=== PATIENT | male | born 1980 | race African-American/Black ===

== ENCOUNTER 2016-09-14 22:06 | Emergency (ER) | payer OTHER ==
[2016-09-14 22:26] VITALS: BP 106/58; PULSE 73; TEMP 98.4; BMI 24.1
--- NOTE | 2016-09-14 23:46 | PDOC ---
History of Present Illness <Anup Starkey - Last Filed: 09/15/16 02:02> - General History Source: Patient Exam Limitations: No Limitations - History of Present Illness Initial Comments: 09/15/16 01:38 The patient is a 36 year old male, with no significant past medical history, who presents to the emergency department with URI symptoms (nasal congestion and a nonproductive cough) for the past 3 days. The patient additionally endorses nausea and several episodes of nonbilious nonbloody vomiting. He states that he has had a decreased appetite over the past 3 days secondary to nausea/vomiting. The patient reports that he has been taking Robitussin and [place] cough drops for his symptoms, with no relief of symptoms. Currently in the ED, the patient reports that he feels weak. The patient denies fever, chills , diarrhea or dysuria. Allergies: None reported. Past Surgical History: None reported. Social History: Current someday smoker. Reports occasional marijuana use. Denies alcohol use. <Katiuska Hill - Last Filed: 09/15/16 03:46> - General Chief Complaint: Nausea/Vomiting Stated Complaint: VOMITING/NAUSEA Time Seen by Provider: 09/14/16 23:46 Past History - Psycho/Social/Smoking Cessation Hx Suicidal Ideation: No Smoking History: Current some day smoker Information on smoking cessation initiated: No Drug/Substance Use Hx: Yes (marijuana) Substance Use Type: Marijuana <LalitoAnup - Last Filed: 09/15/16 02:02> <Katiuska Hill - Last Filed: 09/15/16 03:46> - Past Medical History Allergies/Adverse Reactions: Allergies Allergy/AdvReac Type Severity Reaction Status Date / Time No Known Allergies Allergy Verified 09/14/16 22:26 Home Medications: Ambulatory Orders Ondansetron [Zofran *Odt*] 8 mg SL TID #30 od.tablet 09/15/16 Review of Systems - Review of Systems Able to Perform ROS?: Yes Comments:: 09/15/16 00:29 GENERAL/CONSTITUTIONAL: +Weakness, decreased appetite. No fever or chills. HEAD, EYES, EARS, NOSE AND THROAT: +Nasal congestion. No change in vision. No ear pain or discharge. No sore throat. CARDIOVASCULAR: No chest pain or shortness of breath. RESPIRATORY: +Cough. No wheezing or hemoptysis. GASTROINTESTINAL: +Nausea, vomiting. No diarrhea or constipation. GENITOURINARY: No dysuria, frequency, or change in urination. MUSCULOSKELETAL: No joint or muscle swelling or pain. No neck or back pain. SKIN: No rash. NEUROLOGIC: No headache, vertigo, loss of consciousness, or change in strength/ sensation. ENDOCRINE: No increased thirst. No abnormal weight change. HEMATOLOGIC/LYMPHATIC: No anemia, easy bleeding, or history of blood clots. ALLERGIC/IMMUNOLOGIC: No hives or skin allergy. <Katiuska Hill - Last Filed: 09/15/16 03:46> *Physical Exam - Vital Signs Last Vital Signs Temp Pulse Resp BP Pulse Ox 98.4 F 73 18 106/58 98 09/14/16 22:24 09/14/16 22:24 09/14/16 22:24 09/14/16 22:24 09/14/16 22:24 <Anup Starkey - Last Filed: 09/15/16 02:02> - Vital Signs Last Vital Signs Temp Pulse Resp BP Pulse Ox 98.4 F 73 18 106/58 98 09/14/16 22:24 09/14/16 22:24 09/14/16 22:24 09/14/16 22:24 09/14/16 22:24 - Physical Exam Comments: 09/15/16 00:26 GENERAL: Awake, alert, and fully oriented, in no acute distress. HEAD: No signs of trauma. EYES: PERRLA, EOMI, sclera anicteric, conjunctiva clear. ENT: Auricles normal inspection, hearing grossly normal, nares patent, oropharynx clear without exudates. Moist mucosa. NECK: Normal ROM, supple, no lymphadenopathy, JVD, or masses. LUNGS: Breath sounds equal, clear to auscultation bilaterally. No wheezes, and no crackles. HEART: Regular rate and rhythm, normal S1 and S2, no murmurs, rubs or gallops. ABDOMEN: Soft, nontender, normoactive bowel sounds. No guarding, no rebound. No masses. EXTREMITIES: Normal range of motion, no edema. No clubbing or cyanosis. No cords, erythema, or tenderness. NEUROLOGICAL: Cranial nerves II through XII intact. Normal speech, normal gait. SKIN: Warm, dry, normal turgor, no rashes or lesions noted. <Katiuska Hill - Last Filed: 09/15/16 03:46> ED Treatment Course - LABORATORY CBC & Chemistry Diagram: 09/15/16 00:46 09/15/16 00:46 <Anup Starkey - Last Filed: 09/15/16 02:02> - LABORATORY CBC & Chemistry Diagram: 09/15/16 00:46 09/15/16 00:46 <Katiuska Hill - Last Filed: 09/15/16 03:46> *DC/Admit/Observation/Transfer - Discharge Dispostion Admit: No - Attestations Physician Attestion: 09/14/16 23:46 I, Dr. Anup Starkey, attest that this document has been prepared under my direction and personally reviewed by me in its entirety. I further attest, that it accurately reflects all work, treatment, procedures and medical decision -making performed by me. <Anup Starkey - Last Filed: 09/15/16 02:02> - Attestations Scribe Attestion: 09/14/16 23:50 Documentation prepared by Katiuska Hill, acting as medical leader for Anup Starkey MD/. <Katiuska Hill - Last Filed: 09/15/16 03:46> Diagnosis at time of Disposition: Viral syndrome - Discharge Dispostion Disposition: HOME Condition at time of disposition: Good - Prescriptions Prescriptions: Ondansetron [Zofran *Odt*] 8 mg SL TID #30 od.tablet - Patient Instructions Printed Discharge Instructions: DI for Vomiting -- Adult Additional Instructions: Ivan- Use the Zofran for Nausea or Vomiting. Return to us if any problems. See your doctor later this week. Best- Dr. Anup Starkey - Post Discharge Activity Work/School Note: Back to Work
[2016-09-15] MEDS ORDERED: ONDANSETRON *ODT* 4 MG TABLET SL ONE (00:33)
[2016-09-15] MEDS ORDERED: ONDANSETRON *ODT* 4 MG TABLET ONE (00:44)
[2016-09-15 00:54] LABS: BASOPHIL 0.3 % (0-2.0); EOSINOPHIL 1.9 % (0-4.5); MCH 31.5 pg (25.7-33.7); MCHC 33.4 g/dl (32.0-35.9); MEAN CELL VOLUME 94.2 fl (80-96); MEAN PLT VOLUME 7.9 fl (7.5-11.1); PLATELET COUNT 220 K/MM3 (134-434); RDW 13.1 % (11.9-15.9); WHITE BLOOD COUNT 7.8 K/mm3 (4.0-10.0)
[2016-09-15 01:03] LABS: URINE APPEARANCE CLEAR; URINE BILIRUBIN NEGATIVE (NEGATIVE); URINE COLOR YELLOW; URINE GLUCOSE (UA) NEGATIVE (NEGATIVE); URINE KETONE TRACE (NEGATIVE); URINE LEUK ESTERASE NEGATIVE (NEGATIVE); URINE NITRITE NEGATIVE (NEGATIVE); URINE UROBILINOGEN NEGATIVE E.U./dl (0.2-1.0)
[2016-09-15 01:15] LABS: URINE BLOOD 2+ (NEGATIVE); URINE PROTEIN 1+ (NEGATIVE)
[2016-09-15 01:19] LABS: URINE MUCUS FEW; URINE RBC 24 /hpf (0-3); URINE WBC 1 /hpf (3-5)
[2016-09-15 01:25] LABS: ALBUMIN 3.8 g/dl (3.4-5.0); ALK PHOS 72 U/L (45-117); ANION GAP 9 (8-16); BILIRUBIN,TOTAL 0.5 mg/dL (0.2-1.0); CALCIUM 8.9 mg/dL (8.5-10.1); CO2 27 mmol/L (21-32); COCKROFT - GAULT 95.61; CREATININE 1.1 mg/dL (0.7-1.3); GLUCOSE,RANDOM 98 mg/dL (74-106); SGOT/AST 15 U/L (15-37); SGPT/ALT 28 U/L (12-78); TOT PROT 7.2 g/dl (6.4-8.2)
== END 2016-09-15 02:06 | disposition home or self-care (01) ==
LOC: JER 22:06
DX: B34.9 Viral infection, unspecified (principal); F17.210 Nicotine dependence, cigarettes, uncomplicated
CPT/HCPCS: 36415; 71020-TC; 80053; 81003; 81015; 83690; 85025; 99281-25

== ENCOUNTER 2020-02-18 20:50 | Emergency (ER) | payer OTHER ==
--- OUTSIDE RECORDS SUMMARY | 2020-02-18 21:05 | XMS ---
:1980 Author Organization [facility] Support Name Relationship Address Phone UE Unavailable Unavailable Unavailable NATAN MILLS SISTER [address] [place] [id number] Re-disclosure Warning The records that you are about to access may contain information from federally- assisted alcohol or drug abuse programs. If such information is present, then the following federally mandated warning applies: This information has been disclosed to you from records protected by federal confidentiality rules (42 CFR part 2). The federal rules prohibit you from making any further disclosure of this information unless further disclosure is expressly permitted by the written consent of the person to whom it pertains or as otherwise permitted by 42 CFR part 2. A general authorization for the release of medical or other information is NOT sufficient for this purpose. The Federal rules restrict any use of the information to criminally investigate or prosecute any alcohol or drug abuse patient.The records that you are about to access may contain highly sensitive health information, the redisclosure of which is protected by Article 27-F of the [facility] Public Health law. If you continue you may haveaccess to information: Regarding HIV / AIDS; Provided by facilities licensed or operated by the [facility] Office of Mental Health; or Provided by the [facility] Office for People With Developmental Disabilities. If such information is present, then the following [facility] mandated warning applies: This information has been disclosed to you from confidential records which are protected by state law. State law prohibits you from making any further disclosure of this information without the specific written consent of the person to whom it pertains, or as otherwise permitted by law. Any unauthorized further disclosure in violation of state law may result in a fine or residential sentence or both. A general authorization for the release of medical or other information is NOT sufficient authorization for further disclosure. Insurance Providers Payer name Policy type / Policy ID Covered Covered democrat's Policy Plan Coverage type democrat ID relationship to Yañez Information yañez [place], [id number] [place] [id number] [employer] [place]
[2020-02-18 21:06] VITALS: BP 123/82; PULSE 68; TEMP 98.2; BMI 28.8
[2020-02-18] MEDS ORDERED: IBUPROFEN 600 MG TABLET (FP) PO ONE ×2 (21:50→21:53)
--- NOTE | 2020-02-18 22:01 | PDOC ---
History of Present Illness - General Chief Complaint: Toothache Stated Complaint: TOOTHACHE History Source: Patient Exam Limitations: No Limitations - History of Present Illness Initial Comments: 02/18/20 21:56 Patient is a 39-year-old male with no past medical history here with complaints of left jaw pain x 2 weeks. States pain is 8/10 to his left lower jaw. Has been taking Tylenol for his symptoms with no relief. Patient notes that he had his wisdom teeth taken out. Lately has been having sensitivity to the teeth left lower jaw. Denies fever, chills, nausea, vomiting. PMHX: as above PSOCHX: neg cig ALL: NKDA GENERAL/CONSTITUTIONAL: [No fever or chills. No weakness. No weight change.] HEAD, EYES, EARS, NOSE AND THROAT: [No change in vision. No ear pain or discharge. No sore throat.] CARDIOVASCULAR: [No chest pain or shortness of breath.] RESPIRATORY: [No cough, wheezing, or hemoptysis.] GASTROINTESTINAL: [No nausea, vomiting, diarrhea or constipation. No rectal bleeding.] GENITOURINARY: [No dysuria, frequency, or change in urination.] MUSCULOSKELETAL: [No joint or muscle swelling or pain. No neck or back pain.] SKIN AND BREASTS: [No rash or easy bruising.] NEUROLOGIC: [No headache, vertigo, loss of consciousness, or loss of sensation.] PSYCHIATRIC: [No depression or anxiety.] ENDOCRINE: [No increased thirst. No abnormal weight change.] HEMATOLOGIC/LYMPHATIC: [No anemia, easy bleeding, or history of blood clots.] ALLERGIC/IMMUNOLOGIC: [No hives or skin allergy. No latex allergy.] GENERAL: [The patient is awake, alert, and fully oriented, in no acute distress.] HEAD: [Normal with no signs of trauma.] EYES: [Pupils equal, round and reactive to light, extraocular movements intact, sclera anicteric, conjunctiva clear.] ENT: [Ears normal, nares patent, oropharynx clear without exudates. Moist mucous membranes, tenderness over the left lower jaw, .] NECK: [Normal range of motion, supple without lymphadenopathy, JVD, or masses.] LUNGS: [Breath sounds equal, clear to auscultation bilaterally. No wheezes, and no crackles.] HEART: [Regular rate and rhythm, normal S1 and S2 without murmur, rub.] ABDOMEN: [Soft, nontender, normoactive bowel sounds. No guarding, no rebound. No masses.] EXTREMITIES: [Normal range of motion, no edema. No clubbing or cyanosis. No cords, erythema, or tenderness.] NEUROLOGICAL: [Cranial nerves II through XII grossly intact. Normal speech, normal gait.] PSYCH: [Normal mood, normal affect.] SKIN: [Warm, Dry, normal turgor, no rashes or lesions noted.] Past History - Medical History Allergies/Adverse Reactions: Allergies Allergy/AdvReac Type Severity Reaction Status Date / Time No Known Allergies Allergy Verified 02/18/20 21:05 Home Medications: Ambulatory Orders Ondansetron [Zofran *Odt*] 8 mg SL TID #30 od.tablet 09/15/16 Clindamycin [Cleocin -] 300 mg PO Q6HPO #28 capsule 02/18/20 Ibuprofen [Ibu] 600 mg PO QID #30 tablet 02/18/20 Oxycodone HCl/Acetaminophen [Percocet 5/325 -] 1 tab PO Q4H #14 tablet MDD 6 02/18/20 COPD: No - Psycho-Social/Smoking History Smoking History: Never smoked - Substance Abuse Hx (Audit-C & DAST Scrn) How often the patient has a drink containing alcohol: Never Score: In Men: 4 or > Positive; In Women: 3 or > Positive: 0 Screen Result (Pos requires Nsg. Audit-10AR): Negative In the last yr the pt used illegal drug/Rx for NonMed reason: No Score: Yes response is considered Positive: 0 Screen Result (Positive result requires Nsg. DAST-10): Negative *Physical Exam - Vital Signs Last Vital Signs Temp Pulse Resp BP Pulse Ox 98.2 F 68 18 123/82 100 02/18/20 21:03 02/18/20 21:03 02/18/20 21:03 02/18/20 21:03 02/18/20 21:03 ED Treatment Course - Medications Given in the ED: ED Medications Discontinued Medications Generic Name Dose Route Start Last Admin Trade Name Freq PRN Reason Stop Dose Admin Ibuprofen 600 mg 02/18/20 21:50 02/18/20 21:55 Motrin - PO 09/27/20 21:51 600 mg ONCE ONE Administration Medical Decision Making - Medical Decision Making 02/18/20 21:56 Patient is a 39-year-old male with no past medical history here with complaints of left jaw pain x 2 weeks. States pain is 8/10 to his left lower jaw. Has been taking Tylenol for his symptoms with no relief. Patient notes that he had his wisdom teeth taken out. Lately has been having sensitivity to the teeth left lower jaw. Denies fever, chills, nausea, vomiting. Patient with no dental caries but has an abscess to the left jaw. [facility] I discussed the physical exam findings, ancillary test results and final diagnoses with the patient. I answered all of the patient's questions. The patient was satisfied with the care received and felt comfortable with the discharge plan and treatment plan. The Patient agrees to follow up with the primary care physician within 24-72 hours. Discharge - Discharge Information Problems reviewed: Yes Clinical Impression/Diagnosis: Dental abscess Condition: Stable Disposition: HOME - Follow up/Referral Referrals: Urgent Care [facility] [Outside] - Patient Discharge Instructions Patient Printed Discharge Instructions: DI for Tooth Abscess, DI for Dental Pain Additional Instructions: Your Discharge Instructions: You must call primary care physician within 24 hours to arrange follow-up. Return to the Emergency Department with any new, persistent or worsening symptoms, for fever, chills, SOB, dizziness or any other concerning changes that may occur. - Post Discharge Activity
[2020-02-18] MEDS ORDERED: CLINDAMYCIN HCL 150 MG CAPSULE (FP) PO ONE (22:17)
[2020-02-18] MEDS ORDERED: CLINDAMYCIN HCL 150 MG CAPSULE (FP) ONE (22:21)
== END 2020-02-18 22:26 | disposition home or self-care (01) ==
LOC: JERFT 20:50 → JER 20:50 → JERFT 22:26
DX: K04.7 Periapical abscess without sinus (principal)
CPT/HCPCS: 99283-25